=== PATIENT | male | born 1980 | race Caucasian/White ===

== ENCOUNTER → 2016-06-17 | Outpatient (CLI) | payer OTHER ==
[~2016-06-17] MED LIST: B-COTAB18 PO; IBUP-103 PO; LORA10TA44 PO
--- NOTE | 2016-06-17 08:18 | DIAGNOSTIC IMAGING REPORT ---
ABDOMINAL ULTRASOUND, RIGHT UPPER QUADRANT HISTORY: Abnormal chest CT.. COMPARISON: None. FINDINGS: Pancreas: The pancreatic tail is obscured by overlying bowel gas. The remaining portions of the pancreas are within normal limits. Liver: There is an 8 mm hyperechoic lesion within the periphery of the right hepatic lobe. No additional lesions identified within the liver. Gallbladder: No gallbladder wall thickening. No gallstones. CBD: 3 mm. Right kidney: No hydronephrosis. IMPRESSION: 1. Normal gallbladder. No gallstones. 2. A stable 8 mm hyperechoic lesion within the right hepatic lobe. This is technically indeterminate by ultrasound but likely represents a hemangioma given the imaging characteristics and long-term stability. The additional lesions seen on the prior CT were not clearly identified on this examination. Electronically signed by: Chris Larson M.D. 06/17/2016 8:17 AM Dictated Date/Time: 06/17/2016 8:14 AM
== END | disposition home or self-care (01) ==
LOC: C.ULTRBC 07:36
PROVIDERS: ATTEND Internal Medicine
DX: R93.2 Abnormal findings on diagnostic imaging of liver and biliary tract (principal)

== ENCOUNTER → 2016-06-19 | Outpatient (CLI) | payer OTHER ==
[~2016-06-19] MED LIST changes: +OPTIRAY 320 IV PRN
--- NOTE | 2016-06-19 10:58 | DIAGNOSTIC IMAGING REPORT ---
CHEST CT WITH CONTRAST CT DOSE: 659.10 mGy.cm HISTORY: Atypical chest pain. R93.8 Thymus [id number] TECHNIQUE: Multiaxial CT images of the chest were performed following the intravenous administration of contrast. COMPARISON: Chest CTA 07/26/2013. FINDINGS: The central airways are patent. No pleural effusions. No pneumothorax. Small linear densities at the base of the left lower lobe and right upper lobe likely represents scarring or subsegmental atelectasis. Otherwise, the lungs are clear. No suspicious pulmonary nodules. No suspicious lytic or blastic osseous lesions. The thyroid gland enhances normally. The anterior mediastinal mass seen on the prior study is no longer present. The hypodense lesion seen on the prior study within the liver not identified on this examination. This could be due to the timing of contrast. The visualized spleen, adrenal glands, and pancreas are unremarkable. The central pulmonary arteries are patent. Normal caliber thoracic aorta. No mediastinal or hilar lymphadenopathy. IMPRESSION: No significant abnormality identified within the chest. The previously identified anterior mediastinal mass is no longer present. Electronically signed by: Chris Larson M.D. 06/19/2016 10:57 AM Dictated Date/Time: 06/19/2016 10:52 AM
== END | disposition home or self-care (01) ==
LOC: C.CTS 10:08
PROVIDERS: ATTEND Physician Assistant
DX: R93.8 Abnormal findings on diagnostic imaging of other specified body structures (principal)